=== PATIENT | male | born 1975 | race Asian ===

== ENCOUNTER 2024-01-05 03:38 | Emergency (ER) | payer OTHER, SELFPAY ==
[2024-01-05 03:49] VITALS: BP 217/140; PULSE 90; RESP 20; TEMP 36.4; O2SAT 96; BMI 32.3
[2024-01-05] MEDS: BENZOCAINE 20 % SPRAY 1 EACH NOSTRIL-R (04:17)
[2024-01-05] MEDS: SILVER NITRATE APPLICATOR 1 EACH STICK..EA. TOPICAL (04:17)
--- NOTE | 2024-01-05 04:19 | ED_ITS ---
HPI - General Adult General Chief complaint: Epistaxis/Nosebleed Stated complaint: Blood Pressure /Nosebleed-5hours Time Seen by Provider: 01/05/24 03:53 Source: patient Mode of arrival: ambulatory Limitations: no limitations History of Present Illness HPI narrative: 48-year-old male, over the [place] presents to the emergency department for evaluation of nosebleed. He reports that the nosebleed started at about 10:00 p.m. which is about 5 hours prior to arrival. No trauma or injury, does not use any anticoagulants. He reports that he has been told his blood pressure is getting higher as he gets older but has not seen a physician since he left the 20 years ago. He denies use of cocaine or other illegal substances but states that he drank ?a lot of coffee? yesterday. He reports that he drink a full cup indicating about 820-24 oz cup by his description of basically espresso shots yesterday to stay awake. Says that he started about 24 hours ago. He thinks this may be contributing to his nose bleed. He denies prior diagnosis of kidney disease, high blood pressure. He denies headache or neurological changes. No nasal pain or prior surgeries. No dental symptoms. He tried staffing some Kleenex in his nose with no improvement of the bleeding. Tried to sleep, but the bleeding would run down his throat, causing irritation. No vomiting. Past medical history per his report is benign, not that he goes to the doctor. Denies surgeries, long-term medications or allergies. Nonsmoker. Denies alcohol intoxication. Denies stimulant drug use. ROS negative times 12 systems with the exception of the nosebleed. Related Data Home Medications Medication Instructions Recorded Confirmed No Known Home Medications 01/05/24 01/05/24 Allergies Allergy/AdvReac Type Severity Reaction Status Date / Time No Known Drug Allergies Allergy Verified 01/05/24 03:49 [facility] Social History How often do you have a drink containing alcohol: monthly or less AUDIT-C Alcohol total score: 1 Non-prescribed substance use: denies use Exam Const: Vital Signs, click to edit/add: Vital Signs - 24 hr 01/05/24 03:49 01/05/24 04:26 Temperature 97.5 F L Pulse Rate [Pulse Oximeter] 90 Respiratory Rate 20 Blood Pressure [Ri ght Upper Arm] 217/140 H 173/103 H Pulse Oximetry 96 Oxygen Delivery Me thod Room Air Documenting provider has reviewed patient's vital signs: yes Common normals: no apparent distress and alert Orientation/consciousness: Yes awake Other: A little odd affect, but no signs of impairment. No signs of injury or trauma, tissue stuffed in right nostril with signs of light bleeding. HENMT: Common normals: normocephalic Head and scalp: normocephalic Face and sinus: normal facial exam Other: Normal lips, oropharynx, soft palate and dentition. Left nares normal. Right naris shows area of point bleeding at typical anterior plexus area on nasal septum, a little lower anatomically then on most people. Easily visible. No signs of trauma or injury, no facial deformities. Eye: Common normals: PERRL, EOMs intact bilaterally and conjunctivae normal General eye: normal appearance of both eyes Conjunctiva: conjunctiva(e) normal Pupil: PERRL Neck & C-Spine: Common normals: full ROM and no lymphadenopathy Resp: Common normals: normal respiratory effort and no use of accessory muscles Effort & inspection: able to speak in complete sentences Cardio: Common normals: regular rate, regular rhythm, S1 normal heart sound, S2 normal heart sound and no murmurs Rate: regular rate Rhythm: regular rhythm Heart sounds: S1 normal and S2 normal Neuro: Common normals: CN's II-XII intact bilaterally, moves all extremities, no focal motor deficits, no sensory deficits noted and gait normal Sensorium/orientation: awake and alert Speech: speech normal Motor exam: no movement abnormalities noted Psych: Attitude: engaged Activity/motor behavior: appropriate eye contact Thought content: normal thought content Insight: insight good Judgement: judgment good Skin: Common normals: no rashes or lesions noted General skin exam: no rashes or lesions noted Course Course ED Course: Epistasis with elevated blood pressure. No signs of hypertensive emergency or neurological changes otherwise. 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 Discussed treatment options with him. Since the area is easily visible, he is a fairly good candidate for silver nitrate cautery. After discussion of options, he would like to try this. Procedure: Nasal cautery: Area was sprayed with benzocaine spray x1, allow to penetrate for 1 minute. Silver nitrate then used to cauterize the visible area with good initial control. Total area covered was about 5-6 mm along the mid right anterior septum. Allowed to rest for 5 minutes, will then plan to re- examine. Update: Blood pressure improved quite a bit but not to normal levels but certainly out of the danger range at repeat exam. He had some slight oozing, I did reinforce an additional layer with silver nitrate over the previously cauterized area, but not a wider area x1 with good results. Reexamined 20 minutes later with complete resolution of bleeding. Patient her rinse out his mouth, walks around the exam room, sat upright for several minutes and still had no return of bleeding. He is provided with a nasal clamp and instructed on how to use this as well as typical alarm precautions and discussion of management of hypertension. I am not going to start him on medication at this time but strongly advise that he follow-up as soon as possible for long-term management. He was agreeable to this and verbalizes understanding and agreement. Vital Signs Vital signs: Initial Vital Signs Temperature 97.5 F L 01/05/24 03:49 Temperature Source Temporal Artery Scan 01/05/24 03:49 Pulse Rate 90 01/05/24 03:49 Pulse Strength 3+ Normal 01/05/24 03:49 Respiratory Rate 20 01/05/24 03:49 Blood Pressure 217/140 H 01/05/24 03:49 Blood Pressure Mean 165 H 01/05/24 03:49 Blood Pressure Position Sitting 01/05/24 03:49 Pulse Oximetry 96 01/05/24 03:49 Oxygen Delivery Method Room Air 01/05/24 03:49 Vital Signs Temperature 97.5 F L 01/05/24 03:49 Pulse Rate 90 01/05/24 03:49 Respiratory Rate 20 01/05/24 03:49 Blood Pressure 217/140 H 01/05/24 03:49 Pulse Oximetry 96 01/05/24 03:49 Oxygen Delivery Method Room Air 01/05/24 03:49 Temperature 97.5 F L 01/05/24 03:49 Pulse Rate 90 01/05/24 03:49 Respiratory Rate 20 01/05/24 03:49 Blood Pressure 173/103 H 01/05/24 04:26 Pulse Oximetry 96 01/05/24 03:49 Oxygen Delivery Method Room Air 01/05/24 03:49 Medications Administered Medications: Discontinued Medications Generic Name Dose Route Start Last Admin Trade Name Sj CREWS Reason Stop Dose Admin Benzocaine 1 each 01/05/24 04:13 01/05/24 04:17 Benzocaine 20 % Sheridan NOSTRIL-R 01/05/24 04:14 1 each ONCE ONE Administration Silver Nitrate/Potassium Nitrate 1 each 01/05/24 04:13 01/05/24 04:17 Silver Nitrate Applicator 1 Each Stick..Ea. TOPICAL 01/05/24 04:14 1 each ONCE ONE Administration Discharge Plan Discharge Clinical Impression: Epistaxis, Elevated blood pressure reading Patient Disposition: Home, Self-Care Condition: Improved Instructions: Nosebleed (ED) Additional Instructions: As we discussed, your blood pressure is quite high and this likely caused your nose bleed. The caffeine certainly contributed to your high blood pressure. Typically people with blood pressure this high will also have elevated blood pressure on an every day basis that needs treatment. Failure to treat this could lead to early heart disease and or strokes. I do not recommend that you drink quite so much caffeine either. I would like for you to check your blood pressure daily, record these and follow up with a primary care doctor as soon as possible. Please call in the morning to secure the earliest available appointment. You need additional workup and management of this condition. The bleeding firm your right nostril was an anterior plexus bleed, the most common type of nose bleed. Since I was able to see the area of bleeding pretty easily, we numbed and cauterized this with silver nitrate. This is a chemical cautery agent that is commonly used. Rare complications include creation of an ulcer or hole in the nasal septum but this is very unlikely with the superficial technique that was used today. You should definitely expect 10 days of watery, [place] nasal discharge. The discharge can even appear black at times. Mild tenderness and irritation is common. Please avoid picking, itching the nose and or other trauma. We will give you a nasal clamp to take with you. If the bleeding returns, apply the clamp and lie down for 30 minutes. If you cannot get the bleeding to stop within 2 hours or if the bleeding is very heavy, you should come to the emergency department. If you continue to have frequent nosebleeds, I would recommend that you follow-up with an database management specialist. Avoid ibuprofen and aspirin for the next couple of days. It is okay to use Tylenol for discomfort, headache or other symptoms. You may return to driving and or all typical work duties. Activity Level: No Restrictions Discharge Diet: Regular Prescriptions: No Action No Known Home Medications Stand Alone Forms: [employer] Info Instructions
[2024-01-05 04:26] VITALS: BP 173/103
--- NOTE | 2024-01-05 04:30 | ED.NURSE ---
patient sat up and blood started running down his right nostril. Nose clamp placed. notified.
--- NOTE | 2024-01-05 05:31 | ED.NURSE ---
patient still having bleeding from the nose. updated
== END 2024-01-05 06:04 | disposition home or self-care (01) ==
PROVIDERS: Emergency Provider Family Medicine
DX: R04.0 Epistaxis (principal); R03.0 Elevated blood-pressure reading, without diagnosis of hypertension
CPT/HCPCS: 30901; 99283; A9270